=== PATIENT | female | born 1980 | race Caucasian/White ===

== ENCOUNTER 2016-10-19 19:56 | Emergency (ER) | payer MEDICAID ==
[~2016-10-19] VITALS: Ht 157.5 cm; Wt 68.0 kg
[2016-10-19 19:59] VITALS: Ht 157.5 cm; Wt 68.0 kg
[2016-10-19 21:11] LABS: URINE BLOOD (Dip) POC 2+ (NEGATIVE)
[2016-10-19 21:33] LABS: BASOPHIL # 0.1 10^3/ul (0.0-0.1); BASOPHILS % 0.8 % (0.0-2.0); EOSINOPHILS # 0.2 10^3/ul (0.0-0.5); EOSINOPHILS % 2.2 % (0.0-7.0); HEMATOCRIT 38.2 % (37.0-47.0); HEMOGLOBIN 12.8 g/dl (12.0-16.0); LYMPHOCYTES % 33.6 % (15.0-51.0); MEAN CORPUSCULAR HEMOGLOBIN 30.2 pg (29.0-33.0); MEAN CORPUSCULAR HGB CONC 33.5 g/dl (32.0-37.0); MEAN CORPUSCULAR VOLUME 90.1 fl (82.0-101.0); MEAN PLATELET VOLUME 9.6 fl (7.4-10.4); MONOCYTE # 0.6 10^3/ul (0.3-0.9); MONOCYTES % 6.7 % (0.0-11.0); NEUTROPHILS % 56.4 % (39.0-77.0); PLATELET COUNT 340 10^3/UL (140-415); RED BLOOD COUNT 4.24 10^6/ul (4.20-5.40); RED CELL DISTRIBUTION WIDTH 12.6 % (11.5-14.5); WHITE BLOOD COUNT 8.8 10^3/ul (4.8-10.8)
--- NOTE | 2016-10-19 22:04 | ERD ---
ER Documentation Chief Complaint Date/Time DATE: 10/19/16 TIME: 22:02 Chief Complaint vaginal bleeding x 4 weeks, denies HPI Patient is a 36-year-old female who presents to the emergency department for concerns of vaginal bleeding 4 weeks. Patient reports using 3 pads per day. Patient reports bright red blood. Ports some minimal suprapubic pain. Patient describes the pain to be episodic in nature. Patient denies any fevers, chills , nausea, vomiting, upper abdominal pain, chest pain, shortness of breath, loss consciousness. She denies any dysuria, vacancy, urgency or hematuria. Patient has not seen an BATTER OUT for her symptoms. Patient states she does have a history of irregular menstrual bleeding. Patient denies taking any hormonal medications. ROS All systems reviewed and are negative except as per history of present illness. Medications Home Meds No Active Prescriptions or Reported Meds Allergies Allergies: Coded Allergies: No Known Allergy (Unverified , 03/04/14) PMhx/Soc Medical and Surgical Hx: pt denies Medical Hx, pt denies Surgical Hx History of Surgery: No Anesthesia Reaction: No Hx Neurological Disorder: No Hx Respiratory Disorders: No Hx Cardiac Disorders: No Hx Psychiatric Problems: No Hx Miscellaneous Medical Probl: No Hx Alcohol Use: No Hx Substance Use: No Hx Tobacco Use: No Smoking Status: Never smoker Physical Exam Vitals Vital Signs Date Time Temp Pulse Resp B/P Pulse Ox O2 Delivery O2 Flow Rate FiO2 10/19/16 19:59 99.0 89 20 136/73 100 Physical Exam GENERAL: Well-developed, well-nourished female. Appears in no acute distress. HEAD: Normocephalic, atraumatic. EYES: Pupils are equally reactive bilaterally. EOMs grossly intact. No conjunctival erythema. ENT: Moist mucous membranes. No uvula deviation. No kissing tonsils. NECK: Supple. No meningismus. Normal range of motion of the neck. LUNG: Clear to auscultation bilaterally. No rhonchi, wheezing, rales or coarse breath sounds. HEART: Regular rate and rhythm. No murmurs, rubs or gallops. ABDOMEN: Soft, nontender, and nondistended. Positive bowel sounds in all four quadrants. No rebound tenderness, no guarding. (-) McBurney's point tenderness. No CVA tenderness. BACK: No midline tenderness. EXTREMITIES: Equal pulses bilaterally. No peripheral clubbing, cyanosis or edema. No unilateral leg swelling. NEUROLOGIC: Alert and oriented. Moving all four extremities without any difficulty. Normal speech. Steady gait. SKIN: Normal color. Warm and dry. No rashes or lesions. Result Diagram: 10/19/16 2100 Results 24 hrs Laboratory Tests Test 10/19/16 21:00 10/19/16 21:18 White Blood Count 8.810^3/ul Red Blood Count 4.2410^6/ul Hemoglobin 12.8g/dl Hematocrit 38.2% Mean Corpuscular Volume 90.1fl Mean Corpuscular Hemoglobin 30.2pg Mean Corpuscular Hemoglobin Concent 33.5g/dl Red Cell Distribution Width 12.6% Platelet Count 75526^3/UL Mean Platelet Volume 9.6fl Neutrophils % 56.4% Lymphocytes % 33.6% Monocytes % 6.7% Eosinophils % 2.2% Basophils % 0.8% Nucleated Red Blood Cells % 0.0/100WBC Neutrophils # 5.010^3/ul Lymphocytes # 3.010^3/ul Monocytes # 0.610^3/ul Eosinophils # 0.210^3/ul Basophils # 0.110^3/ul Nucleated Red Blood Cells # 0.010^3/ul Bedside Urine pH (LAB) 6.5 Bedside Urine Protein (LAB) Trace Bedside Urine Glucose (UA) Negative Bedside Urine Ketones (LAB) Negative Bedside Urine Blood 2+ Bedside Urine Nitrite (LAB) Negative Bedside Urine Leukocyte Esterase (L Negative Procedures/MDM ED COURSE: The patient was stable throughout ED course. I kept the patient and/or family informed of laboratory and diagnostic imaging results throughout the ED course. DIAGNOSTIC IMAGING: Read by radiologist. DIAGNOSTIC IMAGING REPORT Patient: BERNABE WILKERSON : 1980 Age: 36 Sex: F MR #: [id number] DOS: 10/19/162039 Ordering MD: DOMI SCHMIDT PA-C Location: [facility] Room/Bed: PROCEDURE: US Non-OB Pelvis. CLINICAL INDICATION: Vaginal bleeding. TECHNIQUE: Multiple sonographic images of the pelvis were obtained utilizing a transabdominal and endovaginal technique. The images were reviewed on a PACS workstation. COMPARISON: None. FINDINGS: The uterus is retroverted and measures 6.8 x 4.1 x 4.8 cm. The endometrial echo complex is normal and measures 9 mm. The right ovary measures 2.7 x 2.0 x 2.5 cm. The left ovary measures 2.7 x 2.1 x 2.4 cm. There are simple cysts in both ovaries measuring up to 1.3 cm on the left, normal for age. Blood flow is demonstrated to both ovaries. No adnexal masses are noted. There is no evidence of free fluid. IMPRESSION: 1. Unremarkable pelvic ultrasound. RPTAT: HTAR .Frankie Antunez MD, MD Date Time Electronically viewed and signed by .Frankie Antunez MD, MD on 10/19/2016 22:08 .R/ CC: DOMI SCHMIDT PA-C MEDICAL DECISION MAKING: This is a 36-year-old female presents emergency department for vaginal bleeding 4 weeks patient reports using approximately 3 pads per day. Patient has not seen an BATTER OUT.. Vital signs were reviewed. Patient was afebrile. Patient was hemodynamically stable. Urine test was negative. CBC showed no evidence of systemic infection or severe anemia. Urinalysis showed 2+ blood, no signs of acute infection. Pelvic ultrasound was unremarkable. Given these findings, the patients presentation is most consistent with dysfunctional uterine bleeding. I have a much lower clinical concern for , ectopic , spontaneous , fibroid, uterine hyperplasia , endometriosis, UTI, pyelonephritis, tubo-ovarian abscess,, foreign body, trauma, hormonal medication, steroids, IUD. DISCHARGE: At this time, patient is stable for discharge and outpatient management. She was given a copy of all imaging studies and blood work obtained today. Patient was advised to follow-up with an BATTER OUT in the next 1-2 days. Referral information provided. I have instructed the patient to follow-up with his/her primary care physician in 1-2 days. I have instructed the patient to promptly return to the ER for any new or worsening symptoms including increased pain, swelling, redness, warmth or fever. The patient and/or family expressed understanding of and agreement with this plan. All questions were answered. Home care instructions were provided. Disclaimer: Inadvertent spelling and grammatical errors are likely due to EHR/ dictation software use and do not reflect on the overall quality of patient care. Also, please note that the electronic time recorded on this note does not necessarily reflect the actual time of the patient encounter. Departure Diagnosis: Primary Impression: Vaginal bleeding Condition: Stable Patient Instructions: Dysfunctional Uterine Bleeding Referrals: [facility] YOU HAVE RECEIVED A MEDICAL SCREENING EXAM AND THE RESULTS INDICATE THAT YOU DO NOT HAVE A CONDITION THAT REQUIRES URGENT TREATMENT IN THE EMERGENCY DEPARTMENT. FURTHER EVALUATION AND TREATMENT OF YOUR CONDITION CAN WAIT UNTIL YOU ARE SEEN IN YOUR DOCTORS OFFICE WITHIN THE NEXT 1-2 DAYS. IT IS YOUR RESPONSIBILITY TO MAKE AN APPOINTMENT FOR FOLOW-UP CARE. IF YOU HAVE A PRIMARY DOCTOR --you should call your primary doctor and schedule an appointment IF YOU DO NOT HAVE A PRIMARY DOCTOR YOU CAN CALL OUR PHYSICIAN REFERRAL HOTLINE AT IF YOU CAN NOT AFFORD TO SEE A PHYSICIAN YOU CAN CHOSE FROM THE FOLLOWING [facility] [address] [facility]. [facility] [address] [address] [facility] [facility] [address] [facility] [address] [facility]. [facility]. [address] [facility]. [facility] YOU HAVE RECEIVED A MEDICAL SCREENING EXAM AND THE RESULTS INDICATE THAT YOU DO NOT HAVE A CONDITION THAT REQUIRES URGENT TREATMENT IN THE EMERGENCY DEPARTMENT. FURTHER EVALUATION AND TREATMENT OF YOUR CONDITION CAN WAIT UNTIL YOU ARE SEEN IN YOUR DOCTORS OFFICE WITHIN THE NEXT 1-2 DAYS. IT IS YOUR RESPONSIBILITY TO MAKE AN APPOINTMENT FOR FOLOW-UP CARE. IF YOU HAVE A PRIMARY DOCTOR --you should call your primary doctor and schedule and appointment IF YOU DO NOT HAVE A PRIMARY DOCTOR YOU CAN CALL OUR PHYSICIAN REFERRAL HOTLINE AT . IF YOU CAN NOT AFFORD TO SEE A PHYSICIAN YOU CAN CHOSE FROM THE FOLLOWING [facility] INSTITUTIONS: [facility] [address] [place] [address] [facility] [address] [place] [address] [facility] [address] [place] [address] BATTER [place] [address] [facility] [address] [place] [address] OFFICE FAX , [facility] [address] [place] [address] [address] [facility] [address] [place] [address] [address], [facility] [address] [facility], [address], [facility] [address] [address] [address] [place] [address] [facility] [address] [place] [address] [address] [facility] [id number] - TODD FERNANDEZ [address] [facility]. [address], [facility] [address] [address] [address] [facility]. [address], [facility] [address] [address] [address] [place], [place] [address] Additional Instructions: Call your primary care doctor/OBGYN TOMORROW for an appointment during the next 1-2 days.See the doctor sooner or return here if your condition worsens before your appointment time. DOMI SCHMIDT PA-C Oct 19, 2016 22:04
--- NOTE | 2016-10-19 22:08 | RADRPT ---
PROCEDURE: US Non-OB Pelvis. CLINICAL INDICATION: Vaginal bleeding. TECHNIQUE: Multiple sonographic images of the pelvis were obtained utilizing a transabdominal and endovaginal technique. The images were reviewed on a PACS workstation. COMPARISON: None. FINDINGS: The uterus is retroverted and measures 6.8 x 4.1 x 4.8 cm. The endometrial echo complex is normal an d measures 9 mm. The right ovary measures 2.7 x 2.0 x 2.5 cm. The left ovary measures 2.7 x 2.1 x 2.4 cm. There are s imple cysts in both ovaries measuring up to 1.3 cm on the left, normal for age. Blood flow is demon strated to both ovaries. No adnexal masses are noted. There is no evidence of free fluid. IMPRESSION: 1. Unremarkable pelvic ultrasound. RPTAT: HTAR .Frankie Antunez MD, Date Time Electronically viewed and signed by .Frankie Antunez MD, on 10/19/2016 22:08 .R/
== END 2016-10-19 22:28 | disposition home or self-care (01) ==
LOC: FTE 19:56
DX: N93.9 Abnormal uterine and vaginal bleeding, unspecified (principal)
CPT/HCPCS: 76830; 76856; 81003; 85025; Z7502

== ENCOUNTER 2017-03-12 17:45 | Emergency (ER) | END 2017-03-12 23:48 | disposition home or self-care (01) ==

== ENCOUNTER 2018-10-10 19:10 | Emergency (ER) | payer MEDICAID ==
[~2018-10-10] VITALS: Ht 162.6 cm; Wt 67.0 kg
[~2018-10-10 19:10] MED LIST: BEN25 PO; IBUP-1542 PO; PRED20TA PO
[2018-10-10 19:12] VITALS: Ht 162.6 cm; Wt 67.0 kg
[2018-10-10] MEDS ORDERED: FAMOTIDINE 20 MG INJ IV STA (19:18)
[2018-10-10] MEDS ORDERED: SOD CHLORIDE 0.9% 1,000 ML IV STA (19:18)
[2018-10-10] MEDS ORDERED: METHYLPREDNISOLONE 125 MG INJ IV STA (19:18)
[2018-10-10] MEDS ORDERED: DIPHENHYDRAMINE 50 MG INJ IV STA (19:18)
--- NOTE | 2018-10-10 20:20 | ERD ---
ER Documentation Chief Complaint Chief Complaint FEELS THROAT CLOSING AND TONGUE SWELLING HPI Is a 38-year-old female who states she thinks she may be having an allergic reaction. She states she feels like she is having difficulty breathing and effort her throat is closing as well as swelling of her tongue. T this started about 30 minutes prior to arrival to the emergency room. She has no history of allergies in the past. She does not recall any new foods soaps or irritants that may have caused this. She is had no fever or recent illness. No chest pain palpitations or shortness of breath. She is complaining of paresthesias to her bilateral upper extremities. ROS All systems reviewed and are negative except as per history of present illness. Medications Home Meds Active Scripts Prednisone* (Prednisone*) 20 Mg Tab, 60 MG PO DAILY for 4 Days, TAB Prov:ALISSA HILL PA-C 10/10/18 Diphenhydramine Hcl* (Benadryl*) 25 Mg Cap, 25 MG PO Q6, #30 CAP Prov:ALISSA HILL PA-C 10/10/18 Ibuprofen* (Motrin*) 600 Mg Tab, 600 MG PO Q6, #30 TAB Prov:KASHMIRJEFF 03/12/17 Allergies Allergies: Coded Allergies: No Known Allergy (Unverified , 03/04/14) PMhx/Soc Medical and Surgical Hx: pt denies Medical Hx, pt denies Surgical Hx History of Surgery: No Anesthesia Reaction: No Hx Neurological Disorder: No Hx Respiratory Disorders: No Hx Cardiac Disorders: No Hx Psychiatric Problems: No Hx Miscellaneous Medical Probl: No Hx Alcohol Use: No Hx Substance Use: No Hx Tobacco Use: No Smoking Status: Never smoker FmHx Family History: No diabetes Physical Exam Vitals Vital Signs Date Temp Pulse Resp B/P (MAP) Pulse Ox O2 O2 Flow FiO2 Time Delivery Rate 10/10/18 99.2 116 20 155/84 96 19:12 (107) Physical Exam INITIAL VITAL SIGNS: Reviewed by me GENERAL: Awake, alert and oriented x 4, well appearing, nontoxic, speaking in full sentences. No acute distress HEAD: Atraumatic NECK: Supple. No masses. Full range of motion. No meningismus. No midline tenderness. EYES: EOMI. PERRL. THROAT: No tonilar erythema or edema. No exudates. Uvula midline. No kissing tonsils. Tongue swelling, speaks in full sentences RESPIRATORY: Clear to auscultation bilaterally. Symmetric chest wall rise. No wheezing or rales. No accessory muscle use. CV: Regular rate and rhythm. No murmurs, rubs, or gallops. EXTREMITIES: No clubbing or cyanosis. No edema. Moving all extremities normally. BACK: No midline tenderness to palpation. No step-offs. SKIN: Mild hive-like rash to anterior chest wall NEUROLOGIC: Normal mental status and speech. Face is symmetric. Moves all extremities equally. Motor and sensory distally intact. Normal coordination. Ambulates with a strong steady gait. Results 24 hrs Current Medications Medications Dose Sig/Live Start Time Status Last (Trade) Ordered Route PRN Stop Time Admin Dose Reason Admin 25 mg ONCE STAT 10/10/18 DC 10/10/18 Diphenhydrami IV 19:18 10/10/18 19:27 ne HCl 19:20 (Benadryl) Famotidine 20 mg ONCE STAT 10/10/18 DC 10/10/18 (Pepcid Iv) IV 19:18 10/10/18 19:27 19:20 125 mg ONCE STAT 10/10/18 DC 10/10/18 Methylprednis IV 19:18 10/10/18 19:27 olone Sodium 19:20 Succinate (Solu-Medrol) Sodium 1,000 ml @ Q1H STAT 10/10/18 DC 10/10/18 Chloride 1,000 mls/hr IV 19:18 10/10/18 19:27 20:17 Procedures/MDM Patient presents with allergic reaction. She is tachycardic at 116. Her tongue is mildly enlarged. However she is speaking in full sentences and is in no distress. She was given IV fluids, Pepcid, Solu-Medrol, and Benadryl with improvement. She was monitored for over 2 hours and continued to improve. I reviewed the case with and we feel comfortable at home with prescription for Benadryl and a course of prednisone. Patient will be discharged at 10 PM pending continual improvement this will be approximately 3 hours of observation. Patient counseled regarding my diagnostic impression and care plan. Prior to discharge all questions answered. Pt agrees with treatment plan and understands strict return precautions. Pt is instructed to follow up with primary care provider within 24-48 hours. Precautionary instructions provided including instructions to return to the ER if not improving or for any worsening or changing symptoms or concerns. Departure Diagnosis: Primary Impression: Acute anaphylaxis Condition: Stable ALISSA HILL PA-C Oct 10, 2018 20:20
[2018-10-10 22:17] VITALS: BP 111/71; PULSE 72; RESP 20
== END 2018-10-10 22:18 | disposition home or self-care (01) ==
LOC: FTE 19:10
DX: T78.2XXA Anaphylactic shock, unspecified, initial encounter (principal)
CPT/HCPCS: 96374; 96375; J1200; J2930; J7030; Z7502; Z7610